=== PATIENT | male | born 1945 | race Caucasian/White ===

== ENCOUNTER → 2020-08-30 09:16 | Outpatient (CLI) | payer MEDICARE, BC, SELFPAY ==
[2020-09-01 02:29] LABS: COVID19 Sendout Not Detected (Not Detect)
== END ==
PROVIDERS: Family Provider Internal Medicine; Visit Provider Nurse Practitioner
DX: Z11.59 Encounter for screening for other viral diseases (principal)
CPT/HCPCS: 87635

== ENCOUNTER 2020-09-02 08:41 | Day surgery (SDC) | payer MEDICARE, BC, SELFPAY ==
[2020-09-02] MEDS: PROPARACAINE 0.5% OPHTH SOL 2 DROPS EYE-OP (10:00)
[2020-09-02 10:08] VITALS: BP 125/81; PULSE 73; RESP 15; TEMP 36.9; O2SAT 99; BMI 30.6
[2020-09-02] MEDS: CATARACT EYE COMPOUND (10 DROPS/SYRINGE) 3 DROPS EYE-OP (10:14)
--- NOTE | 2020-09-02 10:25 | PM.PREOP ---
Pre-operative Note Interval Note History & Physical reviewed/Exam performed by Physician: Yes Changes to H&P: No
--- NOTE | 2020-09-02 10:25 | PM.OP.1 ---
Operative Date/Time/Diagnoses Pre-op diagnosis: Nuclear cataract right eye Procedure & Clinicians Procedure: Cataract Surgery Same procedure as scheduled: Yes Surgeon: Donavan Pineda Anesthesia Type: MAC +/- and Sedation Operative Notes Procedure in detail: Patient brought to the operating suite. Tetracaine drops placed in the right eye. Marking pen was used to siri the vertical and horizontal meridians. Patient was prepped and draped in sterile manner. Wire lid speculum was placed in the eye. Betadine drops were placed on the eye. This was irrigated. Lidocaine jelly was placed on the eye. A paracentesis port was created with a side-port blade. 0.1 mL 1% preservative free lidocaine was injected into the anterior chamber. The anterior chamber was deepened with viscoelastic. 2.6 mm keratome was used to create a temporal clear corneal incision. Cystotome and Utrata forceps were used to create continuous tear capsulorrhexis. Balanced salt solution was used to hydro dissect the nucleus. The phacoemulsification handpiece was inserted and the nucleus was removed using the stop and chop technique. The irrigation aspiration handpiece was inserted and the remaining cortex was removed. Anterior chamber was deepened with viscoelastic. An Guerrero [id number] intraocular lens with a power of 22.0 was injected into the capsular bag. Irrigation aspiration handpiece was inserted and the remaining viscoelastic was removed. the lens was rotated to the 180 degree meridian. Incision was hydrated with balanced salt solution and found to be leak free with pressure with Weck-Adeola sponges. 0.1 mL Vigamox injected anterior chamber. 0.3 mL Kenalog 10 mg was injected subconjunctivally. Lid speculum was removed. The patient left the operating room in excellent condition. Complications: none Post-operative Condition: stable Disposition: same day surgery
--- NOTE | 2020-09-02 10:50 | SUR.OPER ---
Supine on eye stretcher, head on extension cradle secured with tape. Arms tucked at sides with blanket. Pillow under knees.
[2020-09-02] MEDS: PHENYLEPHRINE/LIDOCAINE VIAL (OR) 0.2 ML EYE-OP (10:54)
[2020-09-02] MEDS: MOXIFLOXACIN INJ 5 MG/ML VIAL EYE-OP (10:55)
[2020-09-02] MEDS: TRIAMCINOLONE 50 MG/5 ML VIAL INJ (10:56)
[2020-09-02] MEDS: TETRACAINE 0.5% OPHTH DROPS 4 ML 2 DROPS EYE-OP (10:57)
[2020-09-02] MEDS: LIDOCAINE JELLY 2% 5 ML 1 APPLIC TOP (10:57)
[2020-09-02] MEDS: BALANCED SALT IRRIG SOLN NO.2 500 ML, EPINEPHrine 1 MG IRR (10:58)
[2020-09-02 11:30] VITALS: BP 104/77; PULSE 74; RESP 16; TEMP 36.3; O2SAT 96
== END 2020-09-02 11:34 | disposition home or self-care (01) ==
PROVIDERS: Family Provider Internal Medicine; PCP Internal Medicine; Referring Provider Internal Medicine; Visit Provider Ophthalmology
PROC: (CPT 66984; principal; 2020-09-02 10:45)
DX: H25.11 Age-related nuclear cataract, right eye (principal); I10 Essential (primary) hypertension
CPT/HCPCS: 66984; J0171; J2250; J3010; J3301; V2787

== ENCOUNTER → 2020-09-15 08:28 | Outpatient (CLI) | payer MEDICARE, BC, SELFPAY ==
[2020-09-15 11:13] LABS: COVID19 -Nasal RAPID Negative (Negative)
== END ==
PROVIDERS: Family Provider Internal Medicine; PCP Internal Medicine; Visit Provider Physician Assistant
DX: Z11.59 Encounter for screening for other viral diseases (principal)
CPT/HCPCS: 87635

== ENCOUNTER 2020-09-16 06:44 | Day surgery (SDC) | payer MEDICARE, BC, SELFPAY ==
[2020-09-16] MEDS: PROPARACAINE 0.5% OPHTH SOL 2 DROPS EYE-OP (07:23)
[2020-09-16] MEDS: CATARACT EYE COMPOUND (10 DROPS/SYRINGE) 3 DROPS EYE-OP (07:24)
[2020-09-16 07:30] VITALS: BP 119/76; PULSE 74; RESP 16; TEMP 36.2; O2SAT 96; BMI 30.6
--- NOTE | 2020-09-16 08:01 | PM.PREOP ---
Pre-operative Note Interval Note History & Physical reviewed/Exam performed by Physician: Yes Changes to H&P: No
--- NOTE | 2020-09-16 08:01 | PM.OP.1 ---
Operative Date/Time/Diagnoses Pre-op diagnosis: Nuclear Cataract Left eye Post-op diagnosis: same Procedure & Clinicians Same procedure as scheduled: Yes Surgeon: Donavan Pineda Anesthesia Type: MAC +/- and Sedation Operative Notes Procedure in detail: Patient brought to the operating suite. Tetracaine drops placed in the left eye. Marking instrument was used to siri the vertical and horizontal meridains. Patient was prepped and draped in sterile manner. Wire lid speculum was placed in the eye. Marking instrument was used to siri the 165 degree meridian. Betadine drops were placed on the eye. This was irrigated. Lidocaine jelly was placed on the eye. A paracentesis port was created with a side-port blade. 0.1 mL 1% preservative free lidocaine was injected into the anterior chamber. The anterior chamber was deepened with viscoelastic. 2.6 mm keratome was used to create a temporal clear corneal incision. Cystotome and Utrata forceps were used to create continuous tear capsulorrhexis. Balanced salt solution was used to hydro dissect the nucleus. The phacoemulsification handpiece was inserted and the nucleus was removed using the stop and chop technique. The irrigation aspiration handpiece was inserted and the remaining cortex was removed. Anterior chamber was deepened with viscoelastic. An Guerrero QTA135 intraocular lens with a power of 22.5 was injected into the capsular bag. Irrigation aspiration handpiece was inserted and the remaining viscoelastic was removed. The lens was rotated to the 165 degree meridian. Incision was hydrated with balanced salt solution and found to be leak free with pressure with Weck-Adeola sponges. 0.1 mL Vigamox injected anterior chamber. 0.3 mL Kenalog 10 mg was injected subconjunctivally. Lid speculum was removed. The patient left the operating room in excellent condition. Complications: none Post-operative Condition: stable Disposition: same day surgery
[2020-09-16] MEDS: PHENYLEPHRINE/LIDOCAINE VIAL (OR) 0.2 ML EYE-OP (08:19)
[2020-09-16] MEDS: MOXIFLOXACIN INJ 5 MG/ML VIAL EYE-OP (08:19)
[2020-09-16] MEDS: LIDOCAINE JELLY 2% 5 ML 1 APPLIC TOP (08:19)
[2020-09-16] MEDS: CHONDROIDTIN/SOD HYALURONATE 1.05 ML SYRINGE INTRAOCULA (08:19)
[2020-09-16] MEDS: TRIAMCINOLONE 50 MG/5 ML VIAL INJ (08:19)
[2020-09-16] MEDS: TETRACAINE 0.5% OPHTH DROPS 4 ML 2 DROPS EYE-OP (08:20)
[2020-09-16] MEDS: BALANCED SALT IRRIG SOLN NO.2 500 ML, EPINEPHrine 1 MG IRR (08:20)
[2020-09-16 08:31] VITALS: BP 108/73; PULSE 78; RESP 14; TEMP 36.3; O2SAT 95
== END 2020-09-16 08:42 | disposition home or self-care (01) ==
PROVIDERS: Family Provider Internal Medicine; PCP Internal Medicine; Referring Provider Internal Medicine; Visit Provider Ophthalmology
PROC: (CPT 66984; principal; 2020-09-16 08:15)
DX: H25.12 Age-related nuclear cataract, left eye (principal); I10 Essential (primary) hypertension
CPT/HCPCS: 66984; J0171; J2250; J3010; J3301; V2787

== ENCOUNTER 2024-11-30 12:00 | Day surgery (SDC) | payer MEDICARE, BC, SELFPAY ==
[2024-11-26 14:26] VITALS: BMI 32.1
[2024-11-30] VITALS (7 sets, daily range): BP systolic 97–136; BP diastolic 69–81; PULSE 71–81; RESP 10–17; TEMP 36.2–36.4; O2SAT 91–98; BMI 32.1
[2024-11-30] MEDS: ACETAMINOPHEN 325 MG TABLET 975 MG PO (13:33)
[2024-11-30] MEDS: LACTATED RINGERS 1,000 ML 84 ML IV (13:33)
--- NOTE | 2024-11-30 15:00 | PM.PREOP ---
Pre-operative Note Interval Note History & Physical reviewed/Exam performed by Physician: Yes Changes to H&P: No
--- NOTE | 2024-11-30 15:01 | P.OP_ITS ---
Operative Date/Time/Diagnoses Date of procedure: 11/30/24 Time of procedure: 15:01 Pre-op diagnosis: Right great toe arthritis with pain Post-op diagnosis: same Procedure & Clinicians Procedure: Right first metatarsophalangeal joint arthrodesis Same procedure as scheduled: Yes Indications: 79-year-old male with arthritic pain to the right great toe. Conservative measures failed to alleviate his pain and he wished to have surgical intervention at this time. We spoke with the risks and potential complications as well as expected outcomes of the surgery. Consent was signed and there were no contraindications to the procedure at this time. Surgeon: Kesha Gustafson Click Yes if Unassisted: Yes Anesthesia Type: General Operative Notes Closure Type: primary Specimen(s): none sent Prosthetic devices, grafts, tissues, transplants, or devices: [place] great toe fusion plate, 4.0 cannulated screw, 3.5 locking and non- locking screws (6). Estimated Blood Loss (mL): 50 Blood products transfused: none Tourniquet time (min): 22 Procedure in detail: The patient was brought to the operating room and placed on the operating table in the supine position. A tourniquet was placed about the patient's right calf. After induction of general anesthesia the right foot and ankle were prepped and draped in the usual aseptic manner. The tourniquet was inflated. Incision was made over the dorsal aspect of the right 1st metatarsophalangeal joint. The incision was deepened through subcutaneous tissues being careful to identify and retract all vital neurovascular structures. All bleeders were cauterized and ligated necessary. A significant amount of degenerative exostoses were noted to the dorsal medial and dorsal lateral 1st metatarsophalangeal joint. The capsule was opened and I also noted an enlarged medial eminence of the 1st metatarsal head. A saw was used to resect the medial eminence enlargement as well as some of the more prominent areas of spurring at the 1st metatarsophalangeal joint. A saw was used to resect the cartilage from the 1st metatarsal head and prepare the joint. The same procedure was performed to the proximal phalanx base. Subchondral drilling was performed to either side with the guidewire as well as some fish scaling using a small forked osteotome. The area was irrigated with copious amount of normal sterile saline. Temporary fixation across the joint was placed with a guidewire and this was checked under C-arm to be in appropriate alignment. A plate was chosen and any further reduction of prominences dorsally was performed with a rasp and rongeur. Using the aid of fluoroscopy, the guide wire was used as cannulation for the drill for a lag screw from the distal medial to proximal lateral 1st metatarsal phalangeal joint. Confirmed appropriate in all 3 planes, a partially threaded screw was placed and the guidewire removed. Good strength and reduction of the former joint. Plate was placed and with the aid of fluoroscopy a series of locking and nonlocking screws were placed across the plate and steadied the joint well. This was checked on C-arm. The area is irrigated with copious amounts normal sterile saline. The tourniquet was deflated and prompt hyperemic response was seen to the foot. No motion was noted at the 1st MTPJ. Subcutaneous closure was performed using Vicryl and nylon was used to close the skin. A sterile lightly compressive dressing was placed on the foot and he was placed in his postoperative shoe. He was transferred to the PACU with vital signs stable and vascular status intact. Complications: none Post-operative Condition: stable Disposition: PACU Plan for aftercare: Following a period of postoperative monitoring, the patient will be discharged to home on written and oral postoperative instructions including keeping the dressing dry and intact, no weight to the surgical foot, icing and elevating the foot when seated home. DVT prevention techniques have been reviewed. For the 1st postoperative visit the dressing will be changed and close to the 4th postoperative week we will likely take x-rays.
[2024-11-30] MEDS: CEFAZOLIN 2 GM/100 ML PREMIX 100 ML IV (15:13)
--- NOTE | 2024-11-30 15:32 | SUR.OPER ---
Supine on padded OR bed, head on pillow, arms secured on padded arm boards at <90 degrees abduction, legs uncrossed, safety belt at waist, tape over blanket over lower left leg, right leg draped free with gel bump under right hip.
[2024-11-30] MEDS: BUPIVACAINE 0.5% (PF) 30 ML VIAL INJ (15:39)
== END 2024-11-30 18:20 | disposition home or self-care (01) ==
PROVIDERS: Family Provider Internal Medicine; PCP Internal Medicine; Referring Provider Internal Medicine; Visit Provider Podiatrist
PROC: (CPT 28750; principal; 2024-11-30 14:15)
DX: M19.071 Primary osteoarthritis, right ankle and foot (principal); M20.11 Hallux valgus (acquired), right foot; M79.671 Pain in right foot; I25.10 Atherosclerotic heart disease of native coronary artery without angina pectoris; E78.5 Hyperlipidemia, unspecified
CPT/HCPCS: 28750; C1713; C1734; J0690; J1100; J1885; J2405; J2704; J3010